=== PATIENT | female | born 1970 | race Hispanic/Latino ===

== ENCOUNTER → 2025-05-04 | Outpatient (REF) | payer OTHER ==
[~2025-05-04] MED LIST: ATORVASTATIN CA10 MG PO; METFORMIN HCL850 MG PO; VITAMIN D250 MCG
== END ==
LOC: RAD 04-30 09:45 → EDSTATUS 05-06 13:00
PROVIDERS: ATTEND Internal Medicine Gastroenterology
DX: Z01.810 Encounter for preprocedural cardiovascular examination (principal); R10.13 Epigastric pain; Z12.11 Encounter for screening for malignant neoplasm of colon; R14.2 Eructation
CPT/HCPCS: 93005